=== PATIENT | male | born 1980 | race Hispanic/Latino ===

== ENCOUNTER → 2023-06-16 09:52 | Outpatient (REF) | payer OTHER, SELFPAY ==
[2023-06-16 11:50] LABS: Glycohemoglobin (HgbA1c) 5.8 % (4.0-5.6)
[2023-06-16 11:52] LABS: ALT (SGPT) 28 U/L (0-50); AST (SGOT) 31 U/L (17-59); Albumin 4.9 g/dl (3.5-5.0); Alkaline Phosphatase 103 U/L (38-126); Blood Urea Nitrogen 10 mg/dl (9-20); Calcium 9.6 mg/dl (8.4-10.2); Carbon Dioxide 26 mmol/L (22-30); Chloride 101 mmol/L (98-107); Glucose 97 mg/dl (70-99); HDL Cholesterol 36 mg/dl; Potassium 4.1 mmol/L (3.5-5.1); Sodium 139 mmol/L (135-145); Total Bilirubin 0.6 mg/dl (0.2-1.3); Total Cholesterol 195 mg/dl (50-199); Total Protein 8.1 g/dl (6.3-8.2); eGFR > 60.00
[2023-06-16 11:54] LABS: Triglyceride 418 mg/dl (10-149)
[2023-06-16 12:03] LABS: Free T4 0.91 ng/dl (0.78-2.19); Vitamin D, 25-OH*** 27.6 ng/mL (30-80)
[2023-06-16 12:19] LABS: LDL Cholesterol, Direct 100 mg/dl
== END ==
LOC: CLINIC 09:52
PROVIDERS: ATTENDING PHYSICIAN Nurse Practitioner Adult Health
DX: E55.9 Vitamin D deficiency, unspecified (principal); R73.03 Prediabetes; E78.1 Pure hyperglyceridemia; R79.89 Other specified abnormal findings of blood chemistry
CPT/HCPCS: 36415; 80053; 80061; 82306; 83036; 83721; 84439; 84443